=== PATIENT | male | born 1980 | race Caucasian/White ===

== ENCOUNTER 2018-09-25 13:51 | Emergency (ER) | payer OTHER ==
--- NOTE | 2018-09-25 14:14 | EDM.PDOC ---
ED HPI GENERAL MEDICAL PROBLEM - General Chief Complaint: Laceration Stated Complaint: laceration Time Seen by Provider: 09/25/18 14:05 Source of Information: Reports: Patient, Other (Coworker Enoch). Denies: Old Records (No [facility] records available) History Limitations: Reports: Language Barrier (Despite coworker/ingredient specialist) - History of Present Illness INITIAL COMMENTS - FREE TEXT/NARRATIVE: A shunt was brought to the emergency room by his coworker for evaluation of a Workmen's Compensation injury, which occurred at about 13:45 hours this afternoon while he was working at [employer]. He accidentally caught his right hand on the lid and manure barrel resulting in some lacerations on his right hand with no history of foreign body, paresthesias, neurological deficits , or other complaints or injuries. He does not know when he had his last tetanus shot record otherwise no recent complaints including chest pain, abdominal pain, cough, etc. Onset: Today, Sudden Onset Date: 09/25/18 Onset Time: 13:45 Duration: Constant Location: Reports: Upper Extremity, Right. Denies: Head, Face, Neck, Chest, Abdomen, Back, Pelvis, Upper Extremity, Left, Lower Extremity, Left, Radiates to Quality: Reports: Same as Previous Episode, Sharp Severity: Moderate Improves with: Reports: Rest Worsens with: Reports: Movement Context: Reports: Trauma (As above). Denies: Sick Contact Associated Symptoms: Reports: No Other Symptoms. 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 ED EXAM, SKIN/RASH Exam: See Below Exam Limited By: No Limitations General Appearance: Alert, WD/WN, No Apparent Distress Head: Atraumatic, Normocephalic. No: Facial Swelling, Facial Tenderness, Sinus Tenderness Neck: Normal Inspection, Supple, Non-Tender, Full Range of Motion. No: Lymphadenopathy (L), Lymphadenopathy (R), Thyromegaly Respiratory/Chest: No Respiratory Distress, Lungs Clear, Normal Breath Sounds, No Accessory Muscle Use, Chest Non-Tender. No: Pleural Rub, Retractions Cardiovascular: Normal Peripheral Pulses, Regular Rate, Rhythm, No Edema, No Gallop, No JVD, No Murmur, No Rub. No: Gallop/S3, Gallop/S4, Friction Rub Peripheral Pulses: 2+: Radial (L), Radial (R) GI/Abdominal: Normal Bowel Sounds, Soft, Non-Tender, No Organomegaly, No Distention, No Abnormal Bruit, No Mass, Pelvis Stable. No: Guarding (Male) Exam: Deferred Rectal (Males) Exam: Deferred Back Exam: Normal Inspection, Full Range of Motion. No: CVA Tenderness (L), CVA Tenderness (R), Muscle Spasm Extremities: Normal Range of Motion, No Pedal Edema, Normal Capillary Refill, Other (Superficial 1 cm laceration site over the distal aspect of the proximal phalanx of digit #4 of the right hand on the dorsal surface not needing repair with additional 1 cm somewhat deeper 1 cm in diameter lacerations over the palmar aspects of the distal aspects phalanx #3 and 4 of the right hand with no evidence of foreign body, ligamental injury, significant bleeding, deformity, etc.). No: Non-Tender (Mild tenderness over laceration sites), Joint Swelling ED SKIN PROCEDURES - Laceration/Wound Repair Right Proximal Ventral Digit - 3rd (Middle) Lac/Wound length In cm: 2 Appearance: Superficial, Mildly Contaminated Distal NVT: Neuro & Vascular Intact, No Tendon Injury Anesthetic Type: Local Local Anesthesia - Lidocaine (Xylocaine): 1% Plain Local Anesthetic Volume: 4cc Skin Prep: Providone-Iodine (Betadine) Saline Irrigation (cc's): 0 Exploration/Debridement/Repair: Wound Explored, In a Bloodless Field, Explored to Base, No Foreign Material Found, Multiple Flaps Aligned Closed with: Sutures Suture Size: 4-0 # of Sutures: 3 Suture Type: Nylon, Interrupted, Simple Drain Placement: No Sterile Dressing Applied: Nurse Tetanus Status Addressed: Yes Complications: No Right Proximal Ventral Digit - 4th (Ring) Lac/Wound length In cm: 2 Appearance: Superficial, Mildly Contaminated Distal NVT: Neuro & Vascular Intact, No Tendon Injury Anesthetic Type: Local Local Anesthesia - Lidocaine (Xylocaine): 1% Plain Local Anesthetic Volume: 4cc Skin Prep: Providone-Iodine (Betadine) Saline Irrigation (cc's): 0 Exploration/Debridement/Repair: Wound Explored, In a Bloodless Field, Explored to Base, No Foreign Material Found, Multiple Flaps Aligned Closed with: Sutures Suture Size: 4-0 # of Sutures: 3 Suture Type: Nylon, Interrupted, Simple Drain Placement: No Sterile Dressing Applied: Nurse Tetanus Status Addressed: Yes Complications: No - Splinting Right 3rd Digit Splint Site: Third right finger Pre-Procedure NV Status: Normal Post-Procedure NV Status: Normal Splint Material: Aluminum-Foam (3 hole) Splint Design: Extensor (And flexion) Applied & Form Fitted By: Nurse Provider Post-Splint Application NV Check: NV Status Normal, Good Position Complications: No Right 4th Digit Splint Site: Fourth right finger Splint Material: Aluminum-Foam (3 hole) Splint Design: Extensor (And flexion) Applied & Form Fitted By: Nurse Provider Post-Splint Application NV Check: NV Status Normal, Good Position Complications: No Course - Vital Signs Last Recorded V/S: Last Vital Signs Temp 36.7 C 09/25/18 14:06 Pulse 68 09/25/18 14:06 Resp 20 09/25/18 14:06 BP 126/84 09/25/18 14:06 Pulse Ox 98 09/25/18 14:06 Vital Signs - 24 hr 09/25/18 14:06 Temperature [ 36.7 C Temporal] Pulse, 68 Peripheral [ Left Pulse Oximetry] Respiratory 20 Rate Blood Pressure 126/84 [Left Upper Arm ] O2 Sat by Pulse 98 Oximetry - Orders/Labs/Meds Orders: Active Orders 24 hr Category Date Time Status Vaccines to be Administered [RC] PER UNIT ROUTINE Care 09/25/18 14:15 Active Hand Comp Min 3V Rt [CR] Stat Exams 09/25/18 14:15 Taken Durable Medical Equipment for Discharge [DME for Oth 09/25/18 15:08 Ordered Discharge] [COMM] Routine Obtain Past Medical Record [OM.PC] Routine Oth 09/25/18 14:15 Active Labs: None Meds: Medications Discontinued Medications Generic Name Dose Route Start Last Admin Trade Name Beverly PRN Reason Stop Dose Admin Diphtheria/Tetanus/Acell Pertussis 0.5 ml 09/25/18 14:15 09/25/18 14:25 Adacel IM 09/25/18 14:16 0.5 ml .ONCE ONE Administration Lidocaine HCl 5 ml 09/25/18 14:15 09/25/18 14:24 Xylocaine-Mpf 1% INJECT 09/25/18 14:16 5 ml ONETIME ONE Administration Lidocaine HCl 5 ml 09/25/18 14:16 09/25/18 14:24 Xylocaine-Mpf 1% INJECT 09/25/18 14:17 5 ml ONETIME ONE Administration Neomycin/Polymyxin/Bacitracin 1 each 09/25/18 14:16 09/25/18 14:25 Triple Antibiotic Oint TOP 09/25/18 14:17 1 each ONETIME ONE Administration - Radiology Interpretation Free Text/Narrative:: X-rays of the right hand, 3 views, shows notice of fracture, foreign body, dislocation, etc. Departure - Departure Time of Disposition: 15:30 Disposition: Home, Self-Care 01 Condition: Good Clinical Impression: Laceration - Discharge Information *PRESCRIPTION DRUG MONITORING PROGRAM REVIEWED*: Not Applicable *COPY OF PRESCRIPTION DRUG MONITORING REPORT IN PATIENT DION: Not Applicable Instructions: Laceration Care, Adult, [id number], Stitches, [place], or Adhesive Wound Closure, [id number] Referrals: PCP,None [Primary Care Provider] - Forms: ED Department Discharge, ED Return to Work/School Form Additional Instructions: 1. Followup with your regular provider in 10-14 days as directed for reevaluation and suture removal. Bring these discharge instructions with you to that visit. 2. Tylenol 650 mg by mouth every 4 hours and/or OTC ibuprofen 2-3 tabs by mouth every 6 hours with food as directed./needed. You may stagger these medications for 48-72 hours only, which essentially means that you are receiving a pain medication about every 2 hours. 3. Antibacterial soap wash/soak with subsequent antibacterial dressing such as Neosporin, etc. as directed 2 times per day until the wound or laceration site completely heals. Keep the area clean and dry with activity restrictions, including 10 pound lifting restriction, as discussed. Never use hydrogen peroxide for wound care. 4. Work excuse- See Form 5. Immediately after this visit verify that your cellular telephone's voicemail has been activated and is empty. Also verify that your home telephone 's answering machine is operating properly and has space to receive messages. Note that it is sometimes necessary for us to be able to contact you at a later date to discuss your medical care. 6. Please remember that we are ALWAYS here for you and want to answer any questions you may have. Feel free to call the hospital any time and we call you back HOME. 7. You must wear your finger splints at all times with exception of wound care until released by your regular provider. - Problem List & Annotations (1) Laceration SNOMED Code(s): 054140360 Code(s): LLQ0700 - Status: Acute Priority: High Current Visit: No Onset Date: 09/25/18 Annotation/Comment:: Excellent results with laceration repair as above with no significant other injuries, complications, etc. DTaP was given. Coworker/ingredient specialist is present with written instructions also given to the patient in [place]ic. Workmen's Compensation and work excuse forms were completed. Wound care, activity restrictions, etc. discussed. Patient placed in a 3 hole finger splints in order to avoid suture breakage, etc. No evidence of fracture, etc. per x-rays as above. - Problem List Review Problem List Initiated/Reviewed/Updated: Yes - My Orders Last 24 Hours: My Active Orders 09/25/18 14:15 Vaccines to be Administered [RC] PER UNIT ROUTINE Hand Comp Min 3V Rt [CR] Stat Obtain Past Medical Record [OM.PC] Routine 09/25/18 15:08 Durable Medical Equipment for Discharge [DME for Discharge] [COMM] Routine - Assessment/Plan Last 24 Hours: My Active Orders 09/25/18 14:15 Vaccines to be Administered [RC] PER UNIT ROUTINE Hand Comp Min 3V Rt [CR] Stat Obtain Past Medical Record [OM.PC] Routine 09/25/18 15:08 Durable Medical Equipment for Discharge [DME for Discharge] [COMM] Routine Assessment:: As above Plan: As above. Extensive precautions were given to the patient and coworker, who are in agreement with the treatment plan. See Patient Instructions for further treatment and plan, which were also given in [place]ic.
[2018-09-25] MEDS ORDERED: Diphtheria,Pertussis(Acell),Tetanus Vaccine 0.5 ML SDV IM ONE (14:15)
[2018-09-25] MEDS ORDERED: Bacitracin/Neomycin/Polymyxin B Oint 0.9 GM U/D Packet TOP ONE (14:16)
== END 2018-09-25 15:30 | disposition home or self-care (01) ==
LOC: LL.ED 13:51
DX: S61.212A Laceration without foreign body of right middle finger without damage to nail, initial encounter (principal); S61.214A Laceration without foreign body of right ring finger without damage to nail, initial encounter; L08.9 Local infection of the skin and subcutaneous tissue, unspecified; Z23 Encounter for immunization; W23.0XXA Caught, crushed, jammed, or pinched between moving objects, initial encounter; Y99.0 Civilian activity done for income or pay
CPT/HCPCS: 12002; 73130; 90471; 90715; 99283; J2001